=== PATIENT | female | born 1960 | race Caucasian/White ===

== ENCOUNTER 2024-12-19 14:00 | Inpatient (IN) | payer BC ==
[~2024-12-19] VITALS: Ht 172.7 cm; Wt 93.5 kg
[2024-12-19 15:51] LABS: BASO # 0.1 10^3/uL (0.0-0.2); BASO % 0.2 % (0.0-1.0); EOS # 0.1 10^3/uL (0.0-0.5); EOS % 0.3 % (0.0-3.0); LYMPH # 3.1 10^3/uL (1.5-5.0); LYMPH % 10.7 % (24.0-44.0); MONO # 2.0 10^3/uL (0.0-0.8); MONO % 6.8 % (2.0-8.0); NEUTROPHILS # 23.4 10^3/uL (1.5-8.5); NEUTROPHILS % 80.3 % (36.0-66.0); PLATELET COUNT, AUTOMATED 521 10^3/uL (150-450)
[2024-12-19 16:17] LABS: CK-MB VALUE MASS 1.4 NG/ML (<3.6)
[2024-12-19 16:18] LABS: CALCIUM LEVEL 8.7 MG/DL (8.3-10.6); CARBON DIOXIDE LEVEL 23 MMOL/L (20-31); CHLORIDE LEVEL 100 MMOL/L (98-107); CPK CREATINE PHOSPHOKINASE 23 U/L (34-145); CREATININE FOR GFR 0.70 MG/DL (0.55-1.30); GLOMERULAR FILTRATION RATE > 90.0 (>45); MB/CK RELATIVE INDEX 6.08 (< OR =4); POTASSIUM SERUM 3.8 MMOL/L (3.5-5.1); SODIUM LEVEL 136 MMOL/L (136-145)
[2024-12-19] MEDS ORDERED: ISOVUE-370 76% 100 ML VIAL As Ordered ONE (16:23)
[2024-12-19] MEDS ORDERED: VITAE40CA GT (16:43)
[2024-12-19] MEDS ORDERED: OMEG10002 PO (16:43)
[2024-12-19] MEDS ORDERED: SEMA2PEN INJ (16:43)
[2024-12-19] MEDS ORDERED: SAM-400T3 PO (16:43)
[2024-12-19] MEDS ORDERED: ALBU8.5H INH (16:43)
[2024-12-19] MEDS ORDERED: LORA1TAB23 PO (16:43)
[2024-12-19] MEDS ORDERED: HYOS1TAB PO (16:43)
[2024-12-19] MEDS ORDERED: ESTR1TAB PO (16:43)
[2024-12-19] MEDS ORDERED: LAMO100T3 PO (16:43)
[2024-12-19] MEDS ORDERED: PANT40TA29 PO (16:43)
[2024-12-19] MEDS ORDERED: ROSU20TA86 PO (16:43)
[2024-12-19] MEDS ORDERED: VENL150C43 PO (16:43)
[2024-12-19] MEDS ORDERED: FENO160T10 PO (16:43)
[2024-12-19] MEDS ORDERED: MONT10TA97 PO (16:43)
[2024-12-19] MEDS ORDERED: HOME MED LIST COMPLETE! XX SCH (16:45)
[2024-12-19] MEDS: MORPHINE 2 MG/ML 1 ML VIAL IV PRN (16:59)
[2024-12-19] MEDS: ONDANSETRON 4MG 2ML VIAL IV ONE (16:59)
[2024-12-19] MEDS: cefTRIAXone SOD 2 GM in DEXTROSE 5% (D5W) ADV/MINI-BAG 50 ML IV ONE (17:35)
[2024-12-19] MEDS: ACETAMINOPHEN 325 MG TAB PO ONE (19:42)
[2024-12-19] MEDS ORDERED: ALBUTEROL SULFATE 2.5 MG/0.5 ML INH CONCENTRATE NEB SOLN NEB PRN (19:45)
[2024-12-19] MEDS: DOXYCYCLINE HYCLATE 100 MG in DEXTROSE 5% (D5W) MINI-BAG PLU 100 ML IV SCH (23:32)
[2024-12-19] MEDS: ROSUVASTATIN 10 MG TAB PO SCH (23:32)
[2024-12-19] MEDS: lamoTRIgine 100 MG TAB PO SCH (23:33)
[2024-12-19] MEDS: MONTELUKAST 10 MG TAB PO SCH (23:33)
[2024-12-19] MEDS: PANTOPRAZOLE 40MG TAB PO SCH (23:33)
[2024-12-19] MEDS: DOCUSATE SODIUM 100 MG CAPSULE PO SCH (23:33)
[2024-12-19] MEDS: VENLAFAXINE **XR** 75MG CAPSULE PO SCH (23:33)
[2024-12-19] MEDS: LORazepam 1 MG TAB PO PRN (23:34)
[2024-12-19] MEDS: KETOROLAC 30 MG/ML 1 ML VIAL IV PRN (23:42)
[2024-12-20 07:24] LABS: BASO # 0.1 10^3/uL (0.0-0.2); BASO % 0.2 % (0.0-1.0); EOS # 0.1 10^3/uL (0.0-0.5); EOS % 0.3 % (0.0-3.0); LYMPH # 2.4 10^3/uL (1.5-5.0); LYMPH % 9.1 % (24.0-44.0); MONO # 2.0 10^3/uL (0.0-0.8); MONO % 7.5 % (2.0-8.0); NEUTROPHILS # 21.6 10^3/uL (1.5-8.5); NEUTROPHILS % 80.7 % (36.0-66.0); PLATELET COUNT, AUTOMATED 477 10^3/uL (150-450)
[2024-12-20 07:52] LABS: CALCIUM LEVEL 8.7 MG/DL (8.3-10.6); CARBON DIOXIDE LEVEL 23 MMOL/L (20-31); CHLORIDE LEVEL 99 MMOL/L (98-107); CREATININE FOR GFR 0.61 MG/DL (0.55-1.30); GLOMERULAR FILTRATION RATE > 90.0 (>45); POTASSIUM SERUM 4.2 MMOL/L (3.5-5.1); SODIUM LEVEL 137 MMOL/L (136-145)
[2024-12-20] MEDS: DOXYCYCLINE HYCLATE 100 MG TABLET PO SCH (09:20)
[2024-12-20] MEDS: FENOFIBRATE 145 MG TABLET PO SCH (09:20)
[2024-12-20 10:50] VITALS: BP 130/72; TEMP 99.1; O2SAT 92
[2024-12-20] MEDS: ACETAMINOPHEN 325 MG TAB PO PRN (11:23)
[2024-12-20 13:00] VITALS: BP 130/68
[2024-12-20] MEDS ORDERED: cefTRIAXone SOD 2 GM in DEXTROSE 5% (D5W) ADV/MINI-BAG 50 ML IV SCH (17:00)
[2024-12-20 17:20] VITALS: BP 132/68; TEMP 98.2; O2SAT 94
[2024-12-20 17:59] LABS: SOURCE, BODY FLUID pH PLEURAL
[2024-12-20] MEDS: PIPERACILLIN/TAZOBACTAM SOD 3.375 GM in DEXTROSE 5% (D5W) ADV/MINI-BAG 50 ML IV SCH (18:05)
[2024-12-20 18:08] LABS: PH BODY FLUID < 6.500 UNITS (NOT ESTABLISHED)
[2024-12-20 18:32] LABS: SOURCE, BODY FLUID GLUCOSE PLEURAL
[2024-12-20 18:33] LABS: SOURCE, BODY FLUID TOT PROTEIN PLEURAL
[2024-12-20 18:34] LABS: AMYLASE, BODY FLUID 26 U/L (NOT ESTABLISHED); SOURCE, BODY FLUID AMYLASE PLEURAL
[2024-12-20 18:42] LABS: APPEARANCE, BODY FLUID CLOUDY (CLEAR); PLEURAL FL COLOR BROWN (COLORLESS); SOURCE, BODY FLUID PLEURAL
[2024-12-20 18:44] LABS: LDH, BODY FLUID > 750 U/L (NOT ESTABLISHED); SOURCE, BODY FLUID LDH PLEURAL
[2024-12-20 20:47] VITALS: BP 135/67; TEMP 98.1; O2SAT 93
[2024-12-21 05:22] VITALS: BP 124/44; TEMP 98.1; O2SAT 91
[2024-12-21 06:08] LABS: BASO # 0.1 10^3/uL (0.0-0.2); BASO % 0.4 % (0.0-1.0); EOS # 0.3 10^3/uL (0.0-0.5); EOS % 1.3 % (0.0-3.0); LYMPH # 2.7 10^3/uL (1.5-5.0); LYMPH % 14.5 % (24.0-44.0); MONO # 1.5 10^3/uL (0.0-0.8); MONO % 8.2 % (2.0-8.0); NEUTROPHILS # 13.7 10^3/uL (1.5-8.5); NEUTROPHILS % 73.5 % (36.0-66.0); PLATELET COUNT, AUTOMATED 447 10^3/uL (150-450)
[2024-12-21 06:36] LABS: CALCIUM LEVEL 9.3 MG/DL (8.3-10.6); CARBON DIOXIDE LEVEL 29 MMOL/L (20-31); CHLORIDE LEVEL 101 MMOL/L (98-107); CREATININE FOR GFR 0.70 MG/DL (0.55-1.30); GLOMERULAR FILTRATION RATE > 90.0 (>45); POTASSIUM SERUM 4.1 MMOL/L (3.5-5.1); SODIUM LEVEL 142 MMOL/L (136-145)
[2024-12-21 12:05] VITALS: BP 106/63; TEMP 98.2; O2SAT 93
[2024-12-21 21:02] VITALS: BP 104/68; TEMP 98.1; O2SAT 94
[2024-12-22] MEDS: ONDANSETRON 4MG ORAL DISINTEGRATING TAB PO PRN (01:19)
[2024-12-22 05:28] VITALS: BP 124/55; TEMP 97.7; O2SAT 91
[2024-12-22 06:26] LABS: BASO # 0.1 10^3/uL (0.0-0.2); BASO % 0.5 % (0.0-1.0); EOS # 0.2 10^3/uL (0.0-0.5); EOS % 1.5 % (0.0-3.0); LYMPH # 2.7 10^3/uL (1.5-5.0); LYMPH % 20.4 % (24.0-44.0); MONO # 1.3 10^3/uL (0.0-0.8); MONO % 10.0 % (2.0-8.0); NEUTROPHILS # 8.5 10^3/uL (1.5-8.5); NEUTROPHILS % 65.4 % (36.0-66.0); PLATELET COUNT, AUTOMATED 440 10^3/uL (150-450)
[2024-12-22 06:59] LABS: CALCIUM LEVEL 8.2 MG/DL (8.3-10.6); CARBON DIOXIDE LEVEL 25 MMOL/L (20-31); CHLORIDE LEVEL 101 MMOL/L (98-107); CREATININE FOR GFR 0.61 MG/DL (0.55-1.30); GLOMERULAR FILTRATION RATE > 90.0 (>45); POTASSIUM SERUM 4.1 MMOL/L (3.5-5.1); SODIUM LEVEL 139 MMOL/L (136-145)
[2024-12-22] MEDS ORDERED: VANCOMYCIN HCL 1,000 MG, VIAL MATE ADAPTER 1 EACH in NS 250 ML IV SCH (10:55)
[2024-12-22] MEDS: ALTEPLASE 10MG IN NS 60ML SYRINGE INTRAPLEU ONE (11:09)
[2024-12-22] MEDS: PULMOZYME 5MG IN NS 55ML SYRINGE INTRAPLEU ONE (11:09)
[2024-12-22] MEDS: NS 50 ML SYRINGE INTRAPLEU ONE (11:10)
[2024-12-22 12:21] VITALS: BP 119/53; TEMP 98.1; O2SAT 96
[2024-12-22] MEDS: VANCOMYCIN HCL 1,750 MG, VIAL MATE ADAPTER 1 EACH in NS 500 ML IV ONE (13:53)
[2024-12-22] MEDS: CALCIUM CARBONATE 500 MG CHEW U/D PO PRN (18:48)
[2024-12-22 19:47] LABS: CALCIUM LEVEL 8.3 MG/DL (8.3-10.6); CARBON DIOXIDE LEVEL 24 MMOL/L (20-31); CHLORIDE LEVEL 100 MMOL/L (98-107); CREATININE FOR GFR 0.62 MG/DL (0.55-1.30); GLOMERULAR FILTRATION RATE > 90.0 (>45); MAGNESIUM LEVEL 1.4 MG/DL (1.8-2.4); PHOSPHORUS LEVEL 2.1 MG/DL (2.4-5.1); POTASSIUM SERUM 4.4 MMOL/L (3.5-5.1); SODIUM LEVEL 135 MMOL/L (136-145)
[2024-12-22 20:05] VITALS: BP 114/86; TEMP 97.9; O2SAT 92
[2024-12-22] MEDS: VANCOMYCIN HCL 1,000 MG, VIAL MATE ADAPTER 1 EACH in NS 250 ML IV SCH (20:37)
[2024-12-22] MEDS: NEUTRA-PHOS 1.5 GM PACKET PO SCH (22:27)
[2024-12-22] MEDS: MAG SULF 1GM/100ML (MAG RUN) 1 GM in IV 1 EA IV SCH (22:30)
[2024-12-23 04:00] VITALS: BP 141/47; TEMP 97.3; O2SAT 92
[2024-12-23 06:34] LABS: BASO # 0.0 10^3/uL (0.0-0.2); BASO % 0.2 % (0.0-1.0); EOS # 0.1 10^3/uL (0.0-0.5); EOS % 0.3 % (0.0-3.0); LYMPH # 2.6 10^3/uL (1.5-5.0); LYMPH % 13.0 % (24.0-44.0); MONO # 1.5 10^3/uL (0.0-0.8); MONO % 7.5 % (2.0-8.0); NEUTROPHILS # 15.4 10^3/uL (1.5-8.5); NEUTROPHILS % 77.4 % (36.0-66.0); PLATELET COUNT, AUTOMATED 424 10^3/uL (150-450)
[2024-12-23 07:28] LABS: CALCIUM LEVEL 7.9 MG/DL (8.3-10.6); CARBON DIOXIDE LEVEL 26 MMOL/L (20-31); CHLORIDE LEVEL 98 MMOL/L (98-107); CREATININE FOR GFR 0.67 MG/DL (0.55-1.30); GLOMERULAR FILTRATION RATE > 90.0 (>45); POTASSIUM SERUM 4.2 MMOL/L (3.5-5.1); SODIUM LEVEL 135 MMOL/L (136-145)
[2024-12-23] MEDS: MAGNESIUM OXIDE 400 MG TAB PO SCH (09:39)
[2024-12-23] MEDS: ALTEPLASE 10MG IN NS 60ML SYRINGE INTRAPLEU ONE (11:41)
[2024-12-23] MEDS: NS 50 ML SYRINGE INTRAPLEU ONE (11:42)
[2024-12-23] MEDS: PULMOZYME 5MG IN NS 55ML SYRINGE INTRAPLEU ONE (11:42)
[2024-12-23 12:00] VITALS: BP 127/41; TEMP 97; O2SAT 94
[2024-12-23 20:49] VITALS: BP 132/55; TEMP 97.9; O2SAT 94
[2024-12-24 04:48] VITALS: BP 130/57; TEMP 99.1; O2SAT 92
[2024-12-24 06:24] LABS: BASO # 0.1 10^3/uL (0.0-0.2); BASO % 0.3 % (0.0-1.0); EOS # 0.2 10^3/uL (0.0-0.5); EOS % 1.0 % (0.0-3.0); LYMPH # 2.4 10^3/uL (1.5-5.0); LYMPH % 13.1 % (24.0-44.0); MONO # 1.1 10^3/uL (0.0-0.8); MONO % 6.2 % (2.0-8.0); NEUTROPHILS # 14.2 10^3/uL (1.5-8.5); NEUTROPHILS % 77.2 % (36.0-66.0); PLATELET COUNT, AUTOMATED 421 10^3/uL (150-450)
[2024-12-24 06:41] LABS: CALCIUM LEVEL 7.5 MG/DL (8.3-10.6); CARBON DIOXIDE LEVEL 24 MMOL/L (20-31); CHLORIDE LEVEL 102 MMOL/L (98-107); CREATININE FOR GFR 0.62 MG/DL (0.55-1.30); GLOMERULAR FILTRATION RATE > 90.0 (>45); MAGNESIUM LEVEL 1.7 MG/DL (1.8-2.4); PHOSPHORUS LEVEL 2.5 MG/DL (2.4-5.1); POTASSIUM SERUM 4.2 MMOL/L (3.5-5.1); SODIUM LEVEL 138 MMOL/L (136-145)
[2024-12-24 06:47] LABS: C REACTIVE PROTEIN QUANTITATIV 18.66 MG/DL (<1.0)
[2024-12-24] MEDS: MAG SULF 1GM/100ML (MAG RUN) 1 GM in IV 1 EA IV ONE (09:37)
[2024-12-24] MEDS: COMBIVENT RESPIMAT 100-20 MCG INHALER 4 GM INH SCH (11:21)
[2024-12-24] MEDS: VANCOMYCIN HCL 1,000 MG, VIAL MATE ADAPTER 1 EACH in NS 250 ML IV SCH (11:31)
[2024-12-24 12:00] VITALS: BP 117/48; TEMP 98.2; O2SAT 93
[2024-12-24] MEDS ORDERED: ALBUTEROL 90 MCG/ACT 8 GM HFA INHALER INH SCH (12:00)
[2024-12-24] MEDS ORDERED: LIDOCAINE 1% MDV 20 ML VIAL As Ordered ONE (13:37)
[2024-12-24] MEDS: LIDOCAINE 1% MDV 20 ML VIAL SC STA (13:39)
[2024-12-24] MEDS: PULMOZYME 5MG IN NS 55ML SYRINGE INTRAPLEU ONE (13:51)
[2024-12-24] MEDS: ALTEPLASE 10MG IN NS 60ML SYRINGE INTRAPLEU ONE (13:51)
[2024-12-24] MEDS: NS 50 ML SYRINGE INTRAPLEU ONE (13:52)
[2024-12-24 20:58] VITALS: BP 116/49; TEMP 97.9; O2SAT 94
[2024-12-24] MEDS ORDERED: NALOXONE INJ 0.4 MG/1 ML VIAL IV PRN (21:05)
[2024-12-24] MEDS: ACETAMINOPHEN *IV* 1,000 MG in IV 1 EA IV SCH (22:00)
[2024-12-24] MEDS: LIDOCAINE 5% PATCH TD SCH (23:12)
[2024-12-25 05:03] VITALS: BP 134/62; TEMP 97.5; O2SAT 93
[2024-12-25 06:19] LABS: BASO # 0.1 10^3/uL (0.0-0.2); BASO % 0.4 % (0.0-1.0); EOS # 0.2 10^3/uL (0.0-0.5); EOS % 1.6 % (0.0-3.0); LYMPH # 2.5 10^3/uL (1.5-5.0); LYMPH % 18.1 % (24.0-44.0); MONO # 1.0 10^3/uL (0.0-0.8); MONO % 7.3 % (2.0-8.0); NEUTROPHILS # 9.9 10^3/uL (1.5-8.5); NEUTROPHILS % 70.4 % (36.0-66.0); PLATELET COUNT, AUTOMATED 438 10^3/uL (150-450)
[2024-12-25 06:52] LABS: CALCIUM LEVEL 8.0 MG/DL (8.3-10.6); CARBON DIOXIDE LEVEL 25 MMOL/L (20-31); CHLORIDE LEVEL 103 MMOL/L (98-107); CREATININE FOR GFR 0.63 MG/DL (0.55-1.30); GLOMERULAR FILTRATION RATE > 90.0 (>45); POTASSIUM SERUM 4.1 MMOL/L (3.5-5.1); SODIUM LEVEL 140 MMOL/L (136-145)
[2024-12-25 06:56] LABS: C REACTIVE PROTEIN QUANTITATIV 14.19 MG/DL (<1.0)
[2024-12-25 12:00] VITALS: BP 124/59; TEMP 97.7; O2SAT 95
[2024-12-25] MEDS: PULMOZYME 5MG IN NS 55ML SYRINGE INTRAPLEU ONE (13:58)
[2024-12-25] MEDS: ALTEPLASE 10MG IN NS 60ML SYRINGE INTRAPLEU ONE (13:58)
[2024-12-25] MEDS: NS 50 ML SYRINGE INTRAPLEU ONE (13:58)
[2024-12-25] MEDS: IBUPROFEN 600 MG TAB PO PRN (15:15)
[2024-12-25 19:39] VITALS: BP 114/40; TEMP 98.2; O2SAT 92
[2024-12-25 19:50] VITALS: BP 122/48
[2024-12-25] MEDS: MIRALAX *UNIT DOSE* 17 GM PACKET PO SCH (21:00)
[2024-12-25] MEDS: SENNA 8.6 MG TAB PO SCH (21:00)
[2024-12-25] MEDS: DOCUSATE SODIUM 100 MG CAPSULE PO SCH (21:24)
[2024-12-25] MEDS: KETOROLAC 30 MG/ML 1 ML VIAL IV SCH (21:25)
[2024-12-25] MEDS: LINEZOLID 600 MG TABLET PO SCH (21:25)
[2024-12-25] MEDS: MUPIROCIN 2% OINT 22 GM TUBE TOP SCH (21:26)
[2024-12-26 04:14] VITALS: BP 129/67; TEMP 98.1; O2SAT 96
[2024-12-26 06:40] LABS: BASO # 0.1 10^3/uL (0.0-0.2); BASO % 0.4 % (0.0-1.0); EOS # 0.2 10^3/uL (0.0-0.5); EOS % 1.4 % (0.0-3.0); LYMPH # 2.5 10^3/uL (1.5-5.0); LYMPH % 18.5 % (24.0-44.0); MONO # 0.8 10^3/uL (0.0-0.8); MONO % 6.2 % (2.0-8.0); NEUTROPHILS # 9.7 10^3/uL (1.5-8.5); NEUTROPHILS % 71.3 % (36.0-66.0); PLATELET COUNT, AUTOMATED 527 10^3/uL (150-450)
[2024-12-26 07:03] LABS: CALCIUM LEVEL 8.3 MG/DL (8.3-10.6); CARBON DIOXIDE LEVEL 26 MMOL/L (20-31); CHLORIDE LEVEL 106 MMOL/L (98-107); CREATININE FOR GFR 0.63 MG/DL (0.55-1.30); GLOMERULAR FILTRATION RATE > 90.0 (>45); POTASSIUM SERUM 4.5 MMOL/L (3.5-5.1); SODIUM LEVEL 143 MMOL/L (136-145)
[2024-12-26 12:10] VITALS: BP 126/60; TEMP 97.7; O2SAT 94
[2024-12-26] MEDS ORDERED: MUPI2OI TOP (14:22)
[2024-12-26] MEDS ORDERED: ZYVO1TAB PO (14:22)
[2024-12-26] MEDS ORDERED: HIBI4LIQ TOP (14:26)
== END 2024-12-26 15:37 | disposition home or self-care (01) | DRG 720 ==
LOC: M ED 14:00 → M ED INP 19:35 → EEVIPCON 19:35 → M MS5PR 12-20 10:50
PROVIDERS: ADMIT Internal Medicine Nephrology; ATTEND General Practice
PROC: 0W9930Z Drainage of Right Pleural Cavity with Drainage Device, Percutaneous Approach (ICD-10-PCS; principal; 2024-12-20 12:00)
PROC: 3E0L3GC Introduction of Other Therapeutic Substance into Pleural Cavity, Percutaneous Approach (ICD-10-PCS; 2024-12-22)
PROC: 0W29X0Z Change Drainage Device in Right Pleural Cavity, External Approach (ICD-10-PCS; 2024-12-24)
DX: A41.9 Sepsis, unspecified organism (principal); J86.9 Pyothorax without fistula; J90 Pleural effusion, not elsewhere classified; J15.212 Pneumonia due to Methicillin resistant Staphylococcus aureus; J44.0 Chronic obstructive pulmonary disease with (acute) lower respiratory infection; I10 Essential (primary) hypertension; G47.33 Obstructive sleep apnea (adult) (pediatric); E11.9 Type 2 diabetes mellitus without complications; E78.5 Hyperlipidemia, unspecified; F41.1 Generalized anxiety disorder; R59.0 Localized enlarged lymph nodes; E66.811 Obesity, class 1; F32.A Depression, unspecified; Z90.79 Acquired absence of other genital organ(s); Z87.891 Personal history of nicotine dependence; Z79.890 Hormone replacement therapy; Z79.899 Other long term (current) drug therapy; Z68.31 Body mass index [BMI] 31.0-31.9, adult; T85.628A Displacement of other specified internal prosthetic devices, implants and grafts, initial encounter

== ENCOUNTER → 2025-01-02 | Outpatient (CLI) | payer BC ==
[~2025-01-02] MED LIST: ALBU8.5H INH; ESTR1TAB PO; FENO160T10 PO; HIBI4LIQ TOP; HYOS1TAB PO; LAMO100T3 PO; LORA1TAB23 PO; MONT10TA97 PO; MUPI2OI TOP; OMEG10002 PO; PANT40TA29 PO; ROSU20TA86 PO; SAM-400T3 PO; SEMA2PEN INJ; VENL150C43 PO; VITAE40CA GT; ZYVO1TAB PO
[2025-01-02 13:50] LABS: BASO # 0.1 10^3/uL (0.0-0.2); BASO % 0.5 % (0.0-1.0); EOS # 0.1 10^3/uL (0.0-0.5); EOS % 1.0 % (0.0-3.0); LYMPH # 2.9 10^3/uL (1.5-5.0); LYMPH % 28.7 % (24.0-44.0); MONO # 0.8 10^3/uL (0.0-0.8); MONO % 7.6 % (2.0-8.0); NEUTROPHILS # 6.3 10^3/uL (1.5-8.5); NEUTROPHILS % 61.6 % (36.0-66.0); PLATELET COUNT, AUTOMATED 724 10^3/uL (150-450)
[2025-01-02 14:07] LABS: C REACTIVE PROTEIN QUANTITATIV 0.85 MG/DL (<1.0)
[2025-01-02 14:17] LABS: ALT/SGPT 12.0 U/L (7.0-40); AST/SGOT 14.0 U/L (<34); CALCIUM LEVEL 9.6 MG/DL (8.3-10.6); CARBON DIOXIDE LEVEL 28.0 MMOL/L (20-31); CHLORIDE LEVEL 102.0 MMOL/L (98-107); CREATININE FOR GFR 0.79 MG/DL (0.55-1.30); GLOMERULAR FILTRATION RATE 83.5 (>45); POTASSIUM SERUM 5.2 MMOL/L (3.5-5.1); SODIUM LEVEL 140.0 MMOL/L (136-145)
== END ==
LOC: M PLAIMG 09:37
PROVIDERS: ATTEND Internal Medicine Infectious Disease
DX: J86.9 Pyothorax without fistula (principal); A49.02 Methicillin resistant Staphylococcus aureus infection, unspecified site